=== PATIENT | female | born 1960 | race Caucasian/White ===

== ENCOUNTER 2019-07-06 10:18 | Emergency (ER) | payer BC ==
[2019-07-06] MEDS ORDERED: NS 0.9% 1000 ML** 1,000 ML IV ONE (10:31)
--- NOTE | 2019-07-06 10:40 | UC ---
Palpitation/Dysrhythmia HP - HPI Summary HPI Summary: 59-year-old woman comes in with a chief complaint of a racing heart and feeling lightheaded feeling like she's going to pass out. Started about an hour ago. A coworker said she looked pale. No complaint of any chest pain. No history of dysrhythmias. - History of Current Complaint Chief Complaint: UCGeneralIllness Stated Complaint: WEAK,DIZZY Time Seen by Provider: 07/06/19 10:27 Pain Intensity: 0 - Allergy/Home Medications Allergies/Adverse Reactions: Allergies Allergy/AdvReac Type Severity Reaction Status Date / Time No Known Allergies Allergy Verified 07/06/19 10:22 Home Medications: Home Medications Aspirin [Aspir-Low] 81 mg PO DAILY 07/06/19 [History Confirmed 07/06/19] PMH/Surg Hx/FS Hx/Imm Hx Previously Healthy: Yes Cardiovascular History: Hypertension - Surgical History Surgical History: Yes Surgery Procedure, Year, and Place: tubal. tonsillectomy - Family History Known Family History: Positive: Hypertension - Social History Alcohol Use: None Substance Use Type: None Smoking Status (MU): Never Smoked Tobacco - Immunization History Most Recent Influenza Vaccination: none Review of Systems All Other Systems Reviewed And Are Negative: Yes Constitutional: Positive: Other - SEE HPI Skin: Positive: Negative Eyes: Positive: Negative ENT: Positive: Negative Respiratory: Positive: Other - SEE HPI Cardiovascular: Positive: Other - SEE HPI Gastrointestinal: Positive: Negative Motor: Positive: Negative Neurovascular: Positive: Negative Musculoskeletal: Positive: Negative Neurological: Positive: Negative Psychological: Positive: Negative Is Patient Immunocompromised?: No Physical Exam Triage Information Reviewed: Yes Appearance: Well-Appearing, No Pain Distress, Well-Nourished Vital Signs: Initial Vital Signs Temp 96 F 07/06/19 10:22 Pulse 142 07/06/19 10:22 Resp 20 07/06/19 10:22 BP 138/92 07/06/19 10:22 Pulse Ox 98 07/06/19 10:22 Vital Signs Reviewed: Yes Eye Exam: Normal Eyes: Positive: Conjunctiva Clear Neck: Positive: Supple Respiratory: Positive: Lungs clear, Normal breath sounds, No respiratory distress Cardiovascular: Positive: Tachycardia Musculoskeletal: Positive: Strength Intact, ROM Intact, No Edema Neurological: Positive: Alert, Muscle Tone Normal Psychological: Positive: Age Appropriate Behavior Skin Exam: Normal Diagnostics - EKG Cardiac Rate: Tachycardia - AT 10:24 Cardiac Rhythm: Junctional: New - 136BPM Summary of EKG Findings: Minimal ST depression anterolateral leads Palpitations Course/Dx - Course Course Of Treatment: Patient has a symptomatic junctional tachycardia. In clinic patient had an IV started some normal saline and transported to the [facility] by ambulance. - Differential Dx/Diagnosis Provider Diagnosis: Junctional tachycardia Discharge ED - Sign-Out/Discharge Documenting (check all that apply): Patient Departure All imaging exams completed and their final reports reviewed: No Studies - Discharge Plan Condition: Stable Disposition: TRANS HIGHER LVL OF CARE FAC Referrals: No Primary Care Phys,NOPCP [Primary Care Provider] - - Billing Disposition and Condition Condition: STABLE Disposition: Trans Higher Lvl of Care Fac
[2019-07-06 10:46] VITALS: BP 126/88
== END 2019-07-06 10:54 | disposition short-term general hospital (02) ==
LOC: UCCORT 10:18
DX: I47.1 Supraventricular tachycardia (principal); I10 Essential (primary) hypertension; Z79.82 Long term (current) use of aspirin
CPT/HCPCS: 93005; 99213; G0463